=== PATIENT | male | born 1970 | race Caucasian/White ===

== ENCOUNTER → 2021-06-29 | Outpatient (CLI) | payer MEDICARE ==
[~2021-06-29] VITALS: Ht 180.3 cm; Wt 131.5 kg
[~2021-06-29] MED LIST: 0.9% NACL 500ML IV.SOLN 500 ML IV SCH; 0.9%NACL 1000ML 1,000 ML IV SCH; ALLO100T PO; ALPR1TAB2 PO; APIX5TAB PO; ASCO100031 PO; ASPI-1443 PO; DOCU-280 PO; DULA3PEN SQ; ESCI20TA PO; EVOL140S2 SQ; FAMO40TA7 PO; HYDR25TA PO; ICOS1CAP PO; INSU100I3 SQ; ISOS30TA92 PO; LISI40TA9 PO; MEMA10TA11 PO; METF-444 PO; MONT-39 PO; MULT-1367 PO
[2021-06-29 08:42] VITALS: BP 130/76
[2021-06-29 10:23] LABS: BASOPHILS % (AUTO) 0.6 % (0.0-5.0); EOSINOPHILS % (AUTO) 4.8 % (0.0-8.0); HEMATOCRIT 45.2 % (42-54); LYMPHOCYTES % (AUTO) 32.6 % (21.0-51.0); MEAN CORPUSCULAR HEMOGLOBIN 30.1 pg (27.0-33.0); MEAN CORPUSCULAR HGB CONC 32.5 g/dL (32.0-36.0); MEAN CORPUSCULAR VOLUME 92.4 fL (79-99); MONOCYTES % (AUTO) 7.8 % (3.0-13.0); NEUTROPHILS % (AUTO) 53.9 % (40.0-77.0); PLATELET COUNT (AUTO) 206 K/uL (130-400); RED BLOOD CELL COUNT(AUTO) 4.89 MIL/uL (4.50-6.20); RED CELL DISTRIBUTION WIDTH 13.9 % (11.0-15.5); WHITE BLOOD COUNT (AUTO) 11.8 K/uL (4.8-10.8)
[2021-06-29 10:33] LABS: CREATININE 1.5 mg/dL (0.5-1.5); POTASSIUM 4.7 mmol/L (3.5-5.1)
[2021-06-29 10:35] LABS: INR 1.03 (0.85-1.15); PROTHROMBIN TIME 11.2 SEC (9.6-11.6)
[2021-06-29 10:36] LABS: PARTIAL THROMBOPLASTIN TIME 29.5 SEC (26.3-35.5)
[2021-06-29 10:47] LABS: B-TYPE NATRIURETIC PEPTIDE 31 pg/mL (0-100)
[2021-06-29 11:52] LABS: APPEARANCE,URINE Clear (CLEAR); BILIRUBIN,URINE Negative (NEGATIVE); COLOR,URINE Yellow (YELLOW); GLUCOSE, URINE (UA) Negative (NEGATIVE); KETONES,URINE Negative (NEGATIVE); LEUKOCYTE ESTERASE ,URINE Negative (NEGATIVE); NITRATE,URINE Negative (NEGATIVE); OCCULT BLOOD,URINE Negative (NEGATIVE); PH,URINE 5.5 (5.0-8.0); PROTEIN,URINE Negative (NEGATIVE); UROBILINOGEN,URINE 0.2 mg/dL (0.2-1.0)
== END | disposition home or self-care (01) ==
LOC: EDSTATUS 09:00 → DAH 10:00
PROVIDERS: ATTEND Internal Medicine Cardiovascular Disease
DX: Z01.810 Encounter for preprocedural cardiovascular examination (principal); R94.39 Abnormal result of other cardiovascular function study; Z79.01 Long term (current) use of anticoagulants
CPT/HCPCS: 36415; 71045; 80048; 81003; 83880; 85025; 85610; 85730; 93005

== ENCOUNTER 2021-07-20 05:54 | Day surgery (SDC) | payer MEDICARE ==
[2021-07-18 10:47] LABS: BASOPHILS % (AUTO) 0.5 % (0.0-5.0); EOSINOPHILS % (AUTO) 5.5 % (0.0-8.0); HEMATOCRIT 42.8 % (42-54); MEAN CORPUSCULAR HEMOGLOBIN 30.8 pg (27.0-33.0); MEAN CORPUSCULAR HGB CONC 33.4 g/dL (32.0-36.0); MEAN CORPUSCULAR VOLUME 92.2 fL (79-99); MONOCYTES % (AUTO) 7.7 % (3.0-13.0); NEUTROPHILS % (AUTO) 53.9 % (40.0-77.0); PLATELET COUNT (AUTO) 216 K/uL (130-400); RED BLOOD CELL COUNT(AUTO) 4.64 MIL/uL (4.50-6.20); RED CELL DISTRIBUTION WIDTH 13.9 % (11.0-15.5); WHITE BLOOD COUNT (AUTO) 11.3 K/uL (4.8-10.8)
[2021-07-18 10:51] LABS: CREATININE 1.6 mg/dL (0.5-1.5); POTASSIUM 4.3 mmol/L (3.5-5.1)
[2021-07-18 10:53] LABS: APPEARANCE,URINE Clear (CLEAR); BILIRUBIN,URINE Negative (NEGATIVE); COLOR,URINE Yellow (YELLOW); GLUCOSE, URINE (UA) Negative (NEGATIVE); KETONES,URINE Trace mg/dL (NEGATIVE); LEUKOCYTE ESTERASE ,URINE Negative (NEGATIVE); NITRATE,URINE Negative (NEGATIVE); OCCULT BLOOD,URINE Negative (NEGATIVE); PROTEIN,URINE Negative (NEGATIVE); UROBILINOGEN,URINE 0.2 mg/dL (0.2-1.0)
[2021-07-18 10:57] LABS: INR 0.95 (0.85-1.15); PROTHROMBIN TIME 10.4 SEC (9.6-11.6)
[2021-07-18 10:59] LABS: PARTIAL THROMBOPLASTIN TIME 26.7 SEC (26.3-35.5)
[2021-07-18 11:08] LABS: BACTERIA,URINE Rare /HPF (None Seen); RBC,URINE 0-1 /HPF (0-1); SQUAMOUS EPITHELIAL CELL,UR Rare /HPF (0-2); WBC,URINE 0-1 /HPF (0-1)
[2021-07-18 11:28] LABS: B-TYPE NATRIURETIC PEPTIDE 53 pg/mL (0-100)
[~2021-07-20] VITALS: Ht 180.3 cm; Wt 133.4 kg
[2021-07-20] VITALS (10 sets, daily range): BP systolic 100–132; BP diastolic 57–82
[~2021-07-20 05:54] MED LIST changes: -0.9%NACL 1000ML 1,000 ML IV SCH
[2021-07-20] MEDS ORDERED: 0.9%NACL 1000ML 1,000 ML IV ONE (06:17)
[2021-07-20] MEDS ORDERED: NITROGLYCERIN 50MG VIAL ONE (07:09)
[2021-07-20] MEDS ORDERED: IOHEXOL 350 MG/ML 100ML INFUS..BTL IV ONE ×2 (07:09→08:09)
[2021-07-20] MEDS ORDERED: LIDOCAINE HCL 1% MDV 50ML VIAL ONE (07:09)
[2021-07-20] MEDS ORDERED: HEPARIN 10,000 UNIT/10ML (1,000 UNIT/ML) VIAL ONE (07:30)
[2021-07-20] MEDS ORDERED: MIDAZOLAM HCL 1 MG/ML 2ML VIAL ONE (07:30)
[2021-07-20] MEDS ORDERED: FENTANYL CITRATE PF 50 MCG/1 ML 2ML VIAL ONE (07:30)
[2021-07-20] MEDS ORDERED: ATROPINE 1MG SYG IVP ONE (08:09)
[2021-07-20] MEDS ORDERED: 0.9%NACL 1000ML 1,000 ML IV SCH (09:00)
[2021-07-20] MEDS ORDERED: DEXTROSE 50%-WATER 50 ML DISP.SYRIN IV PRN (09:00)
[2021-07-20] MEDS ORDERED: GLUCAGON 1MG KIT 1 MG ML IM PRN (09:00)
== END 2021-07-20 15:00 | disposition home or self-care (01) ==
LOC: DAH 05:54
PROVIDERS: ATTEND Internal Medicine Cardiovascular Disease
DX: I25.119 Atherosclerotic heart disease of native coronary artery with unspecified angina pectoris (principal); E11.9 Type 2 diabetes mellitus without complications; I10 Essential (primary) hypertension; E78.5 Hyperlipidemia, unspecified; G47.33 Obstructive sleep apnea (adult) (pediatric); Z86.73 Personal history of transient ischemic attack (TIA), and cerebral infarction without residual deficits; Z86.718 Personal history of other venous thrombosis and embolism; Z98.890 Other specified postprocedural states; Z79.84 Long term (current) use of oral hypoglycemic drugs; Z79.899 Other long term (current) drug therapy; Z79.01 Long term (current) use of anticoagulants
CPT/HCPCS: 36415; 71045; 80048; 81001; 82948; 83880; 85025; 85610; 85730; 93005; 93454; C1760; C1894 ×2; J1644; J2250; J3010; J3490 ×2; J7030; Q9965; Q9967; 96360; 96361; 99156; 99157; J0461

== ENCOUNTER → 2024-12-20 | Outpatient (CLI) | payer MEDICARE, MEDICAID ==
[~2024-12-20] MED LIST changes: -0.9% NACL 500ML IV.SOLN 500 ML IV SCH; -ASCO100031 PO; +ASCO10004 PO; +LISI40TA15 PO; -LISI40TA9 PO
[2024-12-20 13:30] LABS: ASPARTATE AMINOTRANSFERASE 20.0 U/L (10-37); CREATININE 1.6 mg/dL (0.5-1.3); GLOMERULAR FILTR. RATE CALC 51.0 mL/min (>90); GLUCOSE,RANDOM 105.0 mg/dL (70-105); SODIUM SERUM 141.0 mmol/L (136-145); TOTAL PROTEIN, SERUM 7.4 g/dL (6.0-8.3); UREA NITROGEN, BLOOD 25.0 mg/dL (7-18)
== END | disposition home or self-care (01) ==
LOC: LAB 12:33
PROVIDERS: ATTEND Internal Medicine Cardiovascular Disease
DX: I10 Essential (primary) hypertension (principal)
CPT/HCPCS: 36415; 80053

== ENCOUNTER → 2025-01-05 | Outpatient (CLI) | payer MEDICARE, MEDICAID ==
[~2025-01-05] MED LIST changes: -DOCU-280 PO; +DOCU-403 PO; +IOHEXOL 350 MG/ML 100ML INFUS..BTL IV ONE
--- NOTE | 2025-01-06 17:47 | CARDIOLOGY ---
RAD REPORT: [facility] CT ANGIO RADIOLOGY REPORT: CORONARY CT ANGIOGRAPHY DATE: Jan 06, 2025 QUALITY: Excellent CLINICAL HISTORY AND INDICATION: [ chest pain ] TECHNIQUE: After obtaining a preliminary driver/refuse collector image, contrast imaging performed on an [employer] [id number] scanner. A dedicated, limited window, coronary imaging protocol was used, with single breath-hold, retrospective ECG gating, and automated arrhythmia rejection. 100 cc of low osmolar contrast agent: Omnipaque 350 was delivered via a 18-gauge IV catheter in the right antecubital fossa, using a power injector and followed by 60 cc of normal saline bolus as a chaser. Collimated images were reformatted at 0.5 mm intervals, and sent to an offline independent workstation for interpretation, using 3D anatomic reconstructions: Curved multiplanar reconstructions, maximum intensity projections, and multiplanar imaging. No metoprolol was administered prior to scanning due to low baseline heart rate. 0.8 mg SL nitroglycerin was given. CORONARY ARTERY DESCRIPTIONS: The coronary arteries arise in normal position. Left main coronary artery: Normal caliber vessel that bifurcates into the LAD and LCx. No stenosis. Left anterior descending coronary artery: Normal caliber vessel and gives rise to diagonal and septal branches. No stenosis. Left circumflex coronary artery: Normal caliber, nondominant and gives rise to a large OM branch. There is calcified plaque in the mid LCx with 20-30% stenosis. Right coronary artery: Large, dominant vessel giving rise to the PL and PDA branches. There is calcified plaque in the proximal RCA with 50-60% stenosis. CAD-RADs: 3, moderate CAD. Recommend FFR evaluation of RCA, requested analysis. Thoracic Aorta: Normal diameter. Katy Louise MD Cardiovascular Disease [facility] KATY LOUISE MD Jan 06, 2025 17:47
== END | disposition home or self-care (01) ==
LOC: RAH 07:45
PROVIDERS: ATTEND Internal Medicine Cardiovascular Disease
DX: I25.10 Atherosclerotic heart disease of native coronary artery without angina pectoris (principal); R07.9 Chest pain, unspecified
CPT/HCPCS: 75574; Q9967 ×2